=== PATIENT | male | born 1955 | race Caucasian/White ===

== ENCOUNTER → 2017-12-01 | Outpatient (CLI) | payer MEDICARE, BC ==
[~2017-12-01] MED LIST: ALLOPURINOL 10100 M1 PO; AUGMENTIN 500-1 EACH PO; BACTRIM DS TAB1 EAC1 PO; CIPRO500 MG PO; ERGOCALCIF50000 UNIT PO; GLUCOPHAGE500 MG PO; GLYBURIDE 5 MG T5 M1 PO; HYDROCODONE-AP1 EAC6 PO; IBUPROFEN 400400 M1 PO; INVANZ 1GM/NS 101 GM IV; LISINOPRIL20 MG PO
== END ==
LOC: M.WC 00:45
DX: E11.621 Type 2 diabetes mellitus with foot ulcer (principal); L97.521 Non-pressure chronic ulcer of other part of left foot limited to breakdown of skin; I89.0 Lymphedema, not elsewhere classified; I10 Essential (primary) hypertension; E66.01 Morbid (severe) obesity due to excess calories; Z68.43 Body mass index [BMI] 50.0-59.9, adult

== ENCOUNTER → 2017-12-08 | Outpatient (CLI) | payer MEDICARE, BC | LOC: M.WC 02:42 | DX: E11.621 Type 2 diabetes mellitus with foot ulcer (principal); L97.521 Non-pressure chronic ulcer of other part of left foot limited to breakdown of skin; I89.0 Lymphedema, not elsewhere classified; I10 Essential (primary) hypertension; L40.8 Other psoriasis; E66.01 Morbid (severe) obesity due to excess calories; Z68.43 Body mass index [BMI] 50.0-59.9, adult ==

== ENCOUNTER → 2017-12-08 | Outpatient (CLI) | payer MEDICARE, BC | LOC: M.MRI 12:01 | DX: L97.529 Non-pressure chronic ulcer of other part of left foot with unspecified severity (principal); M86.8X7 Other osteomyelitis, ankle and foot; E11.621 Type 2 diabetes mellitus with foot ulcer ==

== ENCOUNTER → 2017-12-15 | Outpatient (CLI) | payer MEDICARE, BC | LOC: M.WC 01:28 | DX: E11.621 Type 2 diabetes mellitus with foot ulcer (principal); L97.521 Non-pressure chronic ulcer of other part of left foot limited to breakdown of skin; I89.0 Lymphedema, not elsewhere classified; I10 Essential (primary) hypertension; L40.8 Other psoriasis; E66.01 Morbid (severe) obesity due to excess calories; Z68.43 Body mass index [BMI] 50.0-59.9, adult ==

== ENCOUNTER → 2017-12-21 | Outpatient (CLI) | payer MEDICARE, BC | LOC: M.WC 01:58 | DX: E11.621 Type 2 diabetes mellitus with foot ulcer (principal); L97.521 Non-pressure chronic ulcer of other part of left foot limited to breakdown of skin; I89.0 Lymphedema, not elsewhere classified; I10 Essential (primary) hypertension; L40.8 Other psoriasis; E66.01 Morbid (severe) obesity due to excess calories; Z68.43 Body mass index [BMI] 50.0-59.9, adult ==

== ENCOUNTER → 2019-12-05 | Day surgery (SDC) | payer MEDICARE, BC ==
[~2019-12-05] VITALS: Ht 177.8 cm; Wt 176.0 kg
[~2019-12-05] MED LIST changes: +DAILY MULTIPLE1 EACH PO; +DICLOXACILLIN500 MG PO
[2019-12-05 14:26] LABS: HEMATOCRIT 36.7 % (42.0-52.0); HEMOGLOBIN 11.8 gm/dL (14.0-18.0); MCHC 32.1 g/dL (28.0-37.0); MCV 80.9 fL (80.0-100.0); MPV 6.6 fl. (7.2-11.1); RBC 4.53 mil/uL (4.50-6.00); WBC 12.3 thou/uL (4.0-11.0)
--- NOTE | 2019-12-11 09:34 | PATH ---
[address] [address] PATHOLOGY RPT PROCEDURE Name: HOANG ARDON Room: [facility]#: [id number] Admission: 12/05/19 Date of : 59 Discharge: Report #: [id number] Path Case #: [id number] LCA Accession Number: [id number] . 01 Material submitted: . PART A: toe - SECOND AND THIRD TOE RIGHT FOOT/STITCH MARKED SECOND TOE. Modifiers: second, third, right PART B: toe - RIGHT FIFTH TOE. Modifiers: right, fifth . 01 Clinical history: . Osteomyelitis right third toe . 02 Diagnosis: A. Second and third right toes: - Second toe with nonspecific ulceration and osteomyelitis of underlying phalanx with dermal deposits typical of gout, disarticulation margin free of osteomyelitis. - Third toe with nonspecific ulceration and osteomyelitis of phalangeal bone, with disarticulation margin free of osteomyelitis. . B. Right fifth toe: - Benign toe including phalangeal bones, without osteomyelitis. . (FLAKO:elsy; 12/10/2019) MBR 12/10/2019 1330 Local . 02 Electronically signed: . Yaron Evans MD, Pathologist NPI- [id number] . 01 Gross description: . A. The specimen is received in formalin, labeled "Hoang Ardon, second and third right toe, stitch pierce second toe". Received are two amputated digits, which are attached to each other, measuring 5.3 x 4.8 x 2.7 cm in greatest dimensions. There is a suture present on one toe designating this as the second toe. The bone margins are smooth and concave, consistent with disarticulation. The bone and soft tissue margins of the second toe are inked black and the bone and soft tissue margins of the third toe are inked blue. Sectioning through the bone margin of the second toe causes severe fragmentation. The nail is absent on the third toe. The epidermal surface displays a poorly circumscribed, irregular in contour and hernandez-vela to yellow-green lesion measuring 3.5 x 3.5 cm, which covers approximately 80% of the epidermis. The specimen is submitted representatively as follows: . A1-A3 full-thickness longitudinal cross-section of second toe submitted from proximal to distal aspects, following decalcification A4-A6 full-thickness longitudinal cross-section [place] [address] PATHOLOGY RPT PROCEDURE Name: HOANG ARDON [facility] [id number] Admission: 12/05/19 Date of : 59 Discharge: Report #: [id number] Path Case #: [id number] from proximal to distal aspects, following decalcification. (CAA; 12/06/2019) . After initial microscopic examination, the specimen container is reexamined. No additional fragments of bone or soft tissue are identified. (CAA; 12/07/2019) . B. The specimen is received in formalin, labeled "Hoang Ardon, right fifth toe". Received is an amputated digit measuring 5.4 x 2.0 x 1.9 cm in greatest dimensions. The bone margin is smooth and concave in appearance, consistent with disarticulation. The bone and soft tissue margins are inked black. The nail is present displaying a light vela and slightly thickened appearance. The epidermal surface is pale vela and grossly unremarkable. A full-thickness longitudinal cross-section is submitted from proximal to distal aspects in cassettes B1 through B3, following decalcification. (CAA; 12/06/2019) QAC/QAC 12/10/2019 1328 Local . 02 Pathologist provided ICD-10: L97.519, M86.171 . 02 CPT . 666864, 880618, 836489, 319346 Specimen Comment: A courtesy copy of this report has been sent to [phone], [phone] Specimen Comment: [id number] Specimen Comment: Report sent to / DR FREIRE Specimen Comment: A duplicate report has been generated due to demographic updates. Performed at: 01 [facility] [address] [facility] [address], [place] [address] MD Michael Chan MD Phone: [phone] Performed at: 02 [facility] [address], [place], [place] [id number] MD Yaron Evans MD Phone: [phone]
--- NOTE | 2019-12-12 13:43 | OP ---
[address] [address] OPERATIVE REPORT Name: ROBERTO CARLOS ARDON Room: [facility]#: [id number] Admission: 12/05/19 Attend Phys: Gregg Shaver DPM Discharge: Date of : 59 Report #: [id number] THIS REPORT FOR: //name// cc: Josh Wallace MD, David L. MD ~ THIS REPORT FOR: //name// CC: Gregg Wallace DATE OF SERVICE: 12/05/2019 SURGEON: Gregg Shaver DPM. PREOPERATIVE DIAGNOSES: 1. Osteomyelitis, right third toe with nonhealing ulceration. 2. Hammertoe deformities, right second, third and fifth toes. PROCEDURE: Resection, right distal second and third metatarsal heads. ANESTHESIA: MAC. INJECTABLES: A 26 mL of a 1:1 mixture of 0.5% Marcaine plain and 1% lidocaine plain. ESTIMATED BLOOD LOSS: Roughly 2 mL. HEMOSTASIS: Right ankle pneumatic tourniquet at 300 mmHg. SPECIMENS: Right second, third and fifth toes and distal second and third metatarsals. SUTURES: 2-0 nylon. COMPLICATIONS: None. DESCRIPTION OF PROCEDURE: The patient left the OR, placed on the table supine with induction of MAC anesthesia. A well-padded right ankle tourniquet was placed. A local anesthetic block was given and the extremity was prepped and draped aseptically. The foot was exsanguinated with inflation of the tourniquet. A #10 blade was used to disarticulate the right second and third toes as well as the fifth toe from the metatarsophalangeal joints. Disarticulated through elliptical incisions circumferentially around the metatarsophalangeal joints. I was unable to obtain proper closure of the skin at the second and third toe amputation sites, so I transected a portion of the second and third metatarsal heads to facilitate tissue [place] [address] OPERATIVE REPORT Name: ROBERTO CARLOS ARDON [id number] Admission: 12/05/19 Attend Phys: Gregg Shaver DPM Discharge: Date of : 59 Report #: [id number] was utilized for hemostasis and the wounds were flushed with sterile saline. Skin flap was mobilized plantarly to the dorsal aspect of the second and third toe amputation site and sutured with 2-0 nylon. The skin was sutured close over the fifth toe site. The tourniquet was deflated with normal vascular return. The foot was cleansed and dried and dressed with Aquacel Ag, ABDs, Kerlix and Aquiles bandages. The patient left the OR with no complications noted. <ELECTRONICALLY SIGNED> By: Gregg Shaver DPM 12/12/19 1343 1821 1941Djaja Shaver DPM /daniel
--- NOTE | 2019-12-14 14:57 | EKG ---
[place] [address] ELECTROCARDIOGRAM REPORT Name: KRISTEN ARDONY Melanie Room: [facility]#: [id number] Admission: 12/05/19 Attend Phys: Crissy Gomez Discharge: Date of : 59 Date of Service: 12/05/19 1412 Report #: [id number] THIS REPORT FOR: //name// [facility] Test Date: 2019-12-05 Test Time: 14:12:56 Pat Name: ROBERTO CARLOS ARDON Department: Room: Gender: Driver Guard: : 1955 Requested By: Gregg Shaver Order Number: [id number] Reading MD: Josh Munguia Measurements Intervals [place] Rate: 98 P: -5 TX: 195 QRS: -36 QRSD: 104 T: 72 QT: 372 QTc: 476 Interpretive Statements Sinus tachycardia Ventricular premature complex Left axis deviation Anterior infarct, old Compared to ECG 06/16/2017 07:50:28 Ventricular premature complex(es) now present Left-axis deviation now present Myocardial infarct finding still present Electronically Signed On 12-06-2019 9:16:35 DRAFTING LAYOUT WORKER by Josh Munguia [email or web address] <ELECTRONICALLY SIGNED> By: Josh Munguia MD, FAC 12/06/19 0916 141 141 Josh Munguia MD, FAC /EPI
== END | disposition home or self-care (01) ==
LOC: M.SUR 08:12
PROVIDERS: Podiatrist Foot & Ankle Surgery
DX: M86.171 Other acute osteomyelitis, right ankle and foot (principal); M20.41 Other hammer toe(s) (acquired), right foot; L97.519 Non-pressure chronic ulcer of other part of right foot with unspecified severity; Z98.890 Other specified postprocedural states; Z79.899 Other long term (current) drug therapy

== ENCOUNTER 2021-01-22 14:50 | Inpatient (IN) | payer MEDICARE, BC ==
[~2021-01-22] VITALS: Ht 177.8 cm; Wt 153.1 kg
[2021-01-22 14:54] VITALS: BP 98/46
--- NOTE | 2021-01-22 15:13 | NUR ---
PT COVERED IN FECES UPON ARRIVAL TO ER. PT REPORTS HE HAS NOT BEEN ABLE TO AMBULATE SINCE YESTERDAY DUE TO WEAKNESS AND HAS BEEN SITTING IN FECES. PT HAS OPEN WOUND ON RIGHT BUTTOCK WELL PENIS. PT WAS CLEANED UP AND IS NOW CONNECTED TO CARDIAC, BP AND O2 MONITORS.
[2021-01-22 15:43] LABS: HEMATOCRIT 33.7 % (42.0-52.0); HEMOGLOBIN 10.5 gm/dL (14.0-18.0); MCHC 31.3 g/dL (28.0-37.0); MCV 79.8 fL (80.0-100.0); MPV 6.7 fl. (7.2-11.1); NUCLEATED RBCS 0 /100WBC; PLATELET COUNT* 453 thou/uL (150-400); RBC 4.22 mil/uL (4.50-6.00); RDW-CV 20.4 % (10.5-14.5); WBC 28.8 thou/uL (4.0-11.0)
[2021-01-22 15:44] LABS: URINE BLOOD 1+ (Negative); URINE CLARITY CLEAR; URINE COLOR YELLOW; URINE GLUCOSE-RANDOM NEGATIVE (Negative); URINE KETONES NEGATIVE (Negative); URINE PROTEIN NEGATIVE (Negative); URINE SPECIFIC GRAVITY 1.015 (1.005-1.030); URINE UROBILINOGEN 0.2 E.U./dl (0.2-1.0)
[2021-01-22 15:48] LABS: ICTOTEST (BILI CONFIRMATORY) Positive (Negative); URINE BILIRUBIN 1+ (Negative); URINE LEUKOCYTES-REFLEX 2+ (Negative); URINE NITRITE-REFLEX POSITIVE (Negative)
[2021-01-22 15:55] LABS: SQUAMOUS 0-3 Few /LPF (0-3)
[2021-01-22 15:56] LABS: CASTS None Seen /LPF (None Seen); CRYSTALS None Seen /LPF (None Seen); MUCUS 0-3 Light strn/LPF (None Seen); URINE RBC 0-2 Rare /HPF (0-2); URINE WBC-REFLEX 6-15 Few /HPF (0-5)
[2021-01-22 16:00] LABS: CALCIUM 8.3 mg/dL (8.5-10.1); CREATININE 1.2 mg/dL (0.6-1.3); POTASSIUM 3.7 mmol/L (3.5-5.1)
[2021-01-22 16:01] LABS: APTT 25.4 Seconds (25.0-31.3); INR 1.1; PROTIME 11.2 Seconds (9.20-11.50)
[2021-01-22 16:13] LABS: ALBUMIN 2.6 g/dL (3.4-5.0); TOTAL BILIRUBIN 1.8 mg/dL (<0.1-1.0); TOTAL PROTEIN 6.9 g/dL (6.4-8.2)
[2021-01-22 16:19] LABS: ABSOLUTE LYMPHOCYTES 0.6 thou/uL (0.8-5.3); ABSOLUTE MONOCYTES 3.2 thou/uL (0.0-1.2); ABSOLUTE NEUTROPHILS 25.1 thou/uL (1.6-8.1); ANISOCYTOSIS 2+; MICROCYTES Occasional; PLATELET ESTIMATE ADEQUATE
[2021-01-22 16:20] LABS: HYPOCHROMASIA Occasional
--- NOTE | 2021-01-22 16:37 | EKG ---
[place] [address] ELECTROCARDIOGRAM REPORT Name: ROBERTO CARLOS ARDON Room: [place] [address] ADM IN ..#: [id number] Admission: 01/22/21 Attend Phys: Destin Mason Discharge: Date of : 59 Date of Service: 01/22/21 1454 Report #: [id number] THIS REPORT FOR: //name// [facility] ED Test Date: 2021-01-22 Test Time: 14:54:37 Pat Name: ROBERTO CARLOS ARDON Department: Room: [facility] Gender: M Supervisor Final: MARY : 1955 Requested By: Zhang Martinez Order Number: [id number] MD: Jose Middleton Measurements Intervals [place] Rate: 130 P: [place]: QRS: -55 QRSD: 142 T: 106 QT: 331 QTc: 487 Interpretive Statements Atrial fibrillation Left bundle branch block Baseline wander in lead(s) V3 Compared to ECG 12/05/2019 14:12:56 Left bundle-branch block now present Sinus tachycardia no longer present Ventricular premature complex(es) no longer present Left-axis deviation no longer present Myocardial infarct finding no longer present Electronically Signed On 01-22-2021 16:37:07 CDT by Jose Middleton [email or web address] <ELECTRONICALLY SIGNED> By: Jose Middleton MD, [facility] 01/22/21 1637 1454 1454 Jose Middleton MD, [facility] /EPI
[2021-01-22 17:05] VITALS: BP 105/46
[2021-01-22] MEDS ORDERED: AMIODARONE HCL400 MG PO (17:09)
[2021-01-22] MEDS ORDERED: ASA81BEC PO (17:10)
[2021-01-22] MEDS ORDERED: FERRETTS325 MG PO (17:10)
[2021-01-22] MEDS ORDERED: AMMONIUM LACTA385 GM TOP (17:10)
[2021-01-22] MEDS ORDERED: LASIX 40 MG TAB40 MG PO (17:11)
[2021-01-22] MEDS ORDERED: HUMALOG100 UNIT/1 SUBQ (17:11)
[2021-01-22] MEDS ORDERED: GLIPIZIDE 10 MG10 MG PO (17:11)
[2021-01-22] MEDS ORDERED: LANTUS SUBQ (17:11)
[2021-01-22] MEDS ORDERED: TOPROL XL25 MG PO (17:12)
[2021-01-22] MEDS ORDERED: MAXIMUM DAILY1 EACH PO (17:12)
[2021-01-22] MEDS ORDERED: MIRTAZAPINE7.5 MG PO (17:12)
[2021-01-22] MEDS ORDERED: NYSTATIN-TRIAMC15 GM TOP (17:13)
[2021-01-22] MEDS ORDERED: PREPARATION H C26 GM RECTAL (17:14)
[2021-01-22] MEDS ORDERED: PROTONIX 20 MG20 MG PO (17:14)
[2021-01-22] MEDS ORDERED: SERTRALINE HCL100 MG PO (17:15)
[2021-01-22] MEDS ORDERED: FLORASTOR250 MG PO (17:15)
[2021-01-22] MEDS ORDERED: SPIRONOLACTONE25 MG PO (17:16)
[2021-01-22] MEDS ORDERED: CARAFATE 1 GM TA1 GM PO (17:16)
[2021-01-22 18:00] VITALS: BP 128/83
[2021-01-22 20:00] VITALS: BP 96/52
[2021-01-23] VITALS: BP 103/56
[2021-01-23 04:00] VITALS: BP 100/61
--- NOTE | 2021-01-23 07:20 | NUR ---
CHANGE OF SHIFT BEDSIDE REPORT GIVEN PATIENT SEEN AT BEDSIDE, IN BED RESTING ASSUMED PATIENT CARE
[2021-01-23 07:43] LABS: CALCIUM 7.6 mg/dL (8.5-10.1); CREATININE 1.1 mg/dL (0.6-1.3); POTASSIUM 3.4 mmol/L (3.5-5.1)
[2021-01-23 07:46] LABS: MAGNESIUM 1.8 mg/dL (1.8-2.4); PHOSPHORUS* 4.1 mg/dL (2.5-4.9)
--- NOTE | 2021-01-23 07:49 | NUR ---
ASSUMED CARE OF PT AFTER REPORT AT 1930. PT A&OX4. VSS. PHYSICAL ASSESSMENT COMPLETED AND CHARTED. PT ON RA. PT TRACING AFIB/BBB ON TELE.PT DENIES ANY PAIN. STOOL SPECIMEN SENT TO LAB. PT WITH SACRAL & LEFT BUTTOCK SORE & BLE LYMPHEDEMA-WOUND CARE CONSULT. FALL PRECAUTIONS IN PLACE. CALL LIGHT WITHIN REACH.
[2021-01-23 07:58] LABS: % SATURATION 6 % (20-39); IRON 9 ug/dL (50-175)
[2021-01-23 08:00] VITALS: BP 106/60
[2021-01-23 10:03] LABS: ABSOLUTE BASOPHILS 0.1 thou/uL (0.0-0.2); ABSOLUTE LYMPHOCYTES 1.3 thou/uL (0.8-5.3); ABSOLUTE MONOCYTES 2.3 thou/uL (0.0-1.2); ABSOLUTE NEUTROPHILS 20.9 thou/uL (1.6-8.1); BASOPHILS 0.3 %; HEMATOCRIT 30.9 % (42.0-52.0); HEMOGLOBIN 9.8 gm/dL (14.0-18.0); LYMPHOCYTES 5.3 %; MCH 25.2 pg (26.0-34.0); MCHC 31.6 g/dL (28.0-37.0); MONOCYTES 9.5 %; MPV 6.9 fl. (7.2-11.1); NUCLEATED RBCS 0 /100WBC; PLATELET COUNT* 376 thou/uL (150-400); POLYS 84.9 %; RBC 3.86 mil/uL (4.50-6.00); WBC 24.6 thou/uL (4.0-11.0)
[2021-01-23 10:19] LABS: ALBUMIN 2.2 g/dL (3.4-5.0); CALCIUM 7.6 mg/dL (8.5-10.1); POTASSIUM 3.6 mmol/L (3.5-5.1); TOTAL BILIRUBIN 2.4 mg/dL (<0.1-1.0)
[2021-01-23 11:29] VITALS: BP 106/60
--- NOTE | 2021-01-23 12:15 | NUR ---
WOUND CARE NURSE: PATIENT SEEN FOR BILATERAL LOWER LEG EDEMA AND OPEN AREA TO BILATERAL BUTTOCK. SIZE E TUBIGRIP NOTED TO BILATEAL LOWER LEGS REMOVED. GIRTH MEASUREMENTS AT FOOT RIGHT 22CM LEFT 24CM, ANKLE RIGHT 21CM LEFT 22CM AND CALFS RIGHT 40CM AND LEFT 38CM. LARGE AREA OF DISCOLORATION AND SCALING NOTED TO BILATERAL LEGS. AREA CLEANED, MOISTURISING LOITION APPLIED AND TUBIGRIP REPLACED BILATERALY. PATIENT WAS ABLE TO TURN SELF FROM SIDE TO SIDE IN BED TO ASSIST WITH BUTTOCK EVALUATION AND DRESSING. LEFT BUTTOCK PARTIAL THICHNESS OPEN AREA MEASURES 4.5CM X 1CM X 0.1CM RIGHT PARTIAL THICKNESS OPEN AREA MEASURES 4CM X 0.5CM X 0.1CM. MINIMAL SEROSANGUINEOUS DRAINAGE NOTED ON BED FROM BOTH. AREAS CLANSED WITH SOAP AND WATER AND PATTED DRY. EXUDERM DRESSING APPLIED TO BOTH AREAS ADN SECRED WITH TRANSPARENT DRESSING. EDUCATION ON REPOSITIONING AND ELEVATION OF LEGS REINFORCEMENT NEEDED. PATIENT DENIES PAIN RELATED TO WOUNDS AT THIS TIME ALSO DENIES OTHER QUESTIONS OR NEEDS.
--- NOTE | 2021-01-23 12:43 | NUR ---
Pt is A&O. Resides at home with . Pt was just discharged from [facility] last Tuesday. CM spoke with vicki Parker, at [facility], she informed that Pt has used all of his skilled days. Per Elena, they could accept Pt back LTC and bill his Medicare Part B for additional therapies, but family would be responsible for his room and board. A semi private would b $275/day, private room would be $350/day or they could accept him Medicaid pending, CM to discuss with Pt/. CM asked Med Assist to screen Pt to see if he would qualify for [place]. Pt uses a walker for mobility. Pt currently has HH, CM trying to figure out which HH Pt has. Cdiff pending. Therapies ordered.
--- NOTE | 2021-01-23 13:48 | 2DMMODE ---
[place] [address] 2 D/M-MODE ECHOCARDIOGRAM Name: ROBERTO CARLOS ARDON Room: [address] ADM IN Marc.#: [id number] Admission: 01/22/21 Attend Phys: Destin Mason Discharge: Date of : 59 Date of Service: 01/23/21 1347 Report #: [id number] THIS REPORT FOR: cc: Josh Wallace MD, David L. MD Blick, David R. MD [facility] ~ APPROVED REPORT Study performed: 01/23/2021 10:51:34 EXAM: Comprehensive 2D, Doppler, and color-flow Echocardiogram Patient Location: In-Patient Room #: [facility] Status: routine BSA: 2.52 HR: 97 bpm BP: 106/60 mmHg Rhythm: NSR Other Information Study Quality: Good Indications Congestive Heart Failure 2D Dimensions IVSd: 12.08 (7-11mm) LVOT Diam: 21.39 (18-24mm) LVDd: 57.11 mm PWd: 10.18 (7-11mm) Ascending Ao: 35.84 (22-36mm) LVDs: 46.92 (25-40mm) Aortic Root: 36.68 mm Volumes Left Atrial Volume (Systole) LA ESV Index: 36.20 mL/m2 Aortic Valve AoV Peak Tin.: 3.04 m/s AO Peak Gr.: 37.05 mmHg LVOT Max P.42 mmHg AO Mean Gr.: 24.34 mmHg LVOT Mean P.91 mmHg LVOT Max V: 0.93 m/s AO V2 VTI: 54.07 cm LVOT Mean V: 0.64 m/s ZECHARIAH (VTI): 1.19 cm2 LVOT V1 VTI: 17.94 [place] [address] 2 D/M-MODE ECHOCARDIOGRAM Name: ROBERTO CARLOS ARDON Room: [address] IN [facility]#: [id number] Admission: 01/22/21 Attend Phys: Destin Mason Discharge: Date of : 59 Date of Service: 01/23/21 1347 Report #: [id number] TDI Medial E' Tin.: 0.10 m/s Pulmonary Valve PV Peak Tin.: 0.85 m/s PV Peak Gr.: 2.87 mmHg Tricuspid Valve RAP Estimate: 5.00 mmHg TR Peak Gr.: 28.83 mmHg RVSP: 33.00 mmHg PA Pressure: 33.00 mmHg Left Ventricle The left ventricle is normal size. paradoxical septum motion consistent with intraventricular conduction defect There is normal left ventricular wall thickness. Left ventricular systolic function is borderline. LVEF is 45-50%. This study is not technically sufficient to allow evaluation of the LV diastolic function due to atrial fibrillation. Right Ventricle The right ventricle is normal size. The right ventricular systolic function is normal. Atria Left atrium is mildly dilated. The right atrium size is normal. Aortic Valve Aortic valve is calcified. No aortic regurgitation is present. Moderate aortic stenosis. Mitral Valve There is mitral annular calcification. The mitral valve is normal in structure. There is trace mitral valve regurgitation noted. No evidence of mitral valve stenosis. Tricuspid Valve The tricuspid valve is normal in structure. Mild tricuspid regurgitation. estimated pa pressure 40 mm Hg Pulmonic Valve The pulmonary valve is normal in structure. Trace pulmonic regurgitation. Great Vessels The aortic root is normal in size. IVC [place] [address] 2 D/M-MODE ECHOCARDIOGRAM Name: ARDONROBERTO CARLOS Melanie Room: [address] IN .R.#: [id number] Admission: 01/22/21 Attend Phys: Destin Mason Discharge: Date of : 59 Date of Service: 01/23/21 1347 Report #: [id number] collapses >50% with inspiration. Pericardium There is no pericardial effusion. <Conclusion> LVEF is 45-50%. Left atrium is mildly dilated. Moderate aortic stenosis. Mild tricuspid regurgitation. estimated pa pressure 40 mm Hg <ELECTRONICALLY SIGNED> By: Josh Munguia MD, FACC 01/23/21 1347 46 46 Josh Munguia MD, [facility] /INF
[2021-01-24 00:29] VITALS: BP 83/46
[2021-01-24 02:06] LABS: GLYCOHEMOGLOBIN (HGB A1C) 5.9 % (4.8-5.6)
[2021-01-24 05:03] VITALS: BP 78/42
--- NOTE | 2021-01-24 06:19 | NUR ---
ASSUMED CARE OF PATIENT AT 1930. PATIENT HAS HAD SOFT BP'S THROUGH NIGHT WITH SPB IN THE 70-80s. NOTIFIED GRADES 1 THRU 6 HOME TEACHER PHYSICIAN AND RECEIVED ORDERS FOR NS BOLUS AND THEN NS @ 100 ML/HR. PATIENT DENIES DIZZINESS.
[2021-01-24 10:06] LABS: HEMATOCRIT 29.6 % (42.0-52.0); HEMOGLOBIN 9.1 gm/dL (14.0-18.0); MCH 25.2 pg (26.0-34.0); MCHC 30.7 g/dL (28.0-37.0); MCV 81.9 fL (80.0-100.0); MPV 7.3 fl. (7.2-11.1); RBC 3.61 mil/uL (4.50-6.00); RDW-CV 20.2 % (10.5-14.5); WBC 23.5 thou/uL (4.0-11.0)
[2021-01-24 10:16] LABS: CALCIUM 7.8 mg/dL (8.5-10.1); POTASSIUM 3.5 mmol/L (3.5-5.1); TOTAL BILIRUBIN 1.8 mg/dL (<0.1-1.0); TOTAL PROTEIN 4.7 g/dL (6.4-8.2)
[2021-01-24 10:17] LABS: CREATININE 2.2 mg/dL (0.6-1.3)
[2021-01-24 12:00] VITALS: BP 92/39
[2021-01-24 16:00] VITALS: BP 95/49
--- NOTE | 2021-01-24 17:27 | NUR ---
ASSUMED PT CARE AT 0730. PT IS A&O X4, COOPERATIVE AND FRIENDLY. ASSESSMENT COMPLETED. MEDICATIONS ADMINISTERED ORDERED. SCANNED BUT HELD 1600 DOSE OF VANCO IV LAB WAS PRESENT DRAWING TROUGH. RESULTS 32 SO VANCO TO BE HELD. HELD PO DOSE WELL. SAFETY MEASURES IN PLACE. BP CONTINUES TO RUN SOFT THIS AM, BP MEDS HELD AND PHYSICIAN NOTIFIED. NEW ORDERS TO DC MEDICATIONS. WOUND CARE COMPLETED ORDERED DUE TO SOILAGE.
[2021-01-24 20:14] VITALS: BP 74/46
[2021-01-25 04:19] VITALS: BP 80/37
--- NOTE | 2021-01-25 05:33 | NUR ---
ASSUMED CARE OF PATIENT AT 1930. DAY SHIFT REPORTED URINE OUTPUT LESS THAN 200. DURING NOC SHIFT PATIENT HAD 200 OUT. PATIENT HAS HOLT IN PLACE BUT DID BLADDER SCAN PATIENT AND NO RESIDUAL URINE FOUND. PATIENT DENIES ANY SOA. LUNG SOUNDS ARE DIMINISHED. PATIENT O2 LAST O2 SAT 91% ON RA. PATIENT DOES NOT APPEAR TO BE IN DISTRESS.
[2021-01-25 08:50] VITALS: BP 79/38
[2021-01-25 09:56] LABS: HEMATOCRIT 31.3 % (42.0-52.0); HEMOGLOBIN 9.6 gm/dL (14.0-18.0); MCH 25.5 pg (26.0-34.0); MCHC 30.6 g/dL (28.0-37.0); MCV 83.3 fL (80.0-100.0); MPV 7.2 fl. (7.2-11.1); RBC 3.76 mil/uL (4.50-6.00); RDW-CV 20.8 % (10.5-14.5); WBC 22.2 thou/uL (4.0-11.0)
[2021-01-25 10:05] LABS: CALCIUM 7.9 mg/dL (8.5-10.1); POTASSIUM 3.7 mmol/L (3.5-5.1); TOTAL BILIRUBIN 1.4 mg/dL (<0.1-1.0)
[2021-01-25 10:06] LABS: CREATININE 3.2 mg/dL (0.6-1.3)
[2021-01-25 12:50] VITALS: BP 82/45
[2021-01-25 16:39] VITALS: BP 69/30
[2021-01-25 20:00] VITALS: BP 82/41
--- NOTE | 2021-01-25 20:06 | NUR ---
ASSUMED PT CARE AT 0730. PT IS PLEASANT, A&OX4. PT ENCOURAGED TO EAT AND DRINK MORE FLUIDS. BP CONTINUE TO BE SOFT, BUT PT IS ASYMPTOMATIC AND DENIES ANY DIZZINESS, NAUSEA, OR CONFUSION. PT'S LOC WITH NO CHANGE. PT SKIN IS WARM AND DRY. SAFETY MEASURES IN PLACE AND PT ASSISTED WITH REPOSITIONING AND TURNING Q2H. WOUND CARE DONE ORDERED. BP CONTINUES TO BE SOFT 73/35 SPOKE WITH PHYSICIAN AND NEW ORDERS RECIEVED AND IMPLEMENTED FOR NS 500ML TO INFUSE AT 125/HR X1. PT REMAINS ON ISOLATION FOR CDIFF AND CONTINUES TO HAVE LOOSE STOOLS. MOISTURE BARRIER APPLIED AFTER EACH EPISODE. ROUNDING Q1HR. PT REPORTS THAT HE IS FEELING BETTER SINCE HE ATE SOME SOUP.
[2021-01-25 20:15] VITALS: BP 82/41
[2021-01-26] VITALS (65 sets, daily range): BP systolic 71–115; BP diastolic 28–67
--- NOTE | 2021-01-26 04:35 | NUR ---
ASSUMED PT CARE AT APPROX 1930. PT IS AWAKE AND ORIENTED X4. PT IS NOT IN DISTRESS, NO DESATURATIONS NOTED ON ROOM AIR. PT IS TRACING AFIB ON THE PUBLIC RELATIONS SALES MARKETING-RATE IS CONTROLLED. BP STILL SOFT, PT DENIES DIZZINESS, SOB ALTHOUGH PT APPEARS TO BE SHORT OF AIR WITH POSITION CHANGES. IV HYDRATION COMPLETED ORDERED.HIGH FALL PRECAUTIONS IN PLACE. PT REMAINED INCONTINENT OF BOWEL, PT IS KEPT CLEAN AND SKIN PROTECTANT APPLIED EACH TIME. PT IS CLOSELY MONITORED.
--- NOTE | 2021-01-26 07:15 | NUR ---
CHANGE OF SHIFT, BEDSIDE REPORT GIVEN PATIENT SEEN AT BEDSIDE, IN BED ASLEEP ASSUMED PATIENT CARE
--- NOTE | 2021-01-26 08:30 | NUR ---
contacted dr garza via [facility] regarding hypotention
--- NOTE | 2021-01-26 08:45 | NUR ---
contacted dr after sepsis assmnt done flags for sepsis b/p 77/36 hr 102 plts 440 cr 3.2 concerns
--- NOTE | 2021-01-26 08:55 | NUR ---
notified dr of lower bp 66/36
--- NOTE | 2021-01-26 09:00 | NUR ---
contacted print line supervisor after no response from print line supervisor to rm at assist and then call from order to start ns at 150cc/hr and labs to be ordered
--- NOTE | 2021-01-26 11:30 | NUR ---
dr contacted to notify of concerns for patient status no improvement in bp 74/39 and patient seems lethargic and pale but flushed in the cheeks orders to ransfer to icu production supervisor trainee notified and patient to transfer icu 7
--- NOTE | 2021-01-26 11:45 | NUR ---
patient transferred to icu 7 via bed with o2 2l nc telephone report given prior to transfer belongings sent and adrienne notified of move
[2021-01-26 13:33] LABS: HEMATOCRIT 32.2 % (42.0-52.0); HEMOGLOBIN 9.8 gm/dL (14.0-18.0); MCH 25.1 pg (26.0-34.0); MCHC 30.5 g/dL (28.0-37.0); MCV 82.4 fL (80.0-100.0); MPV 7.3 fl. (7.2-11.1); RBC 3.9 mil/uL (4.50-6.00); RDW-CV 20.5 % (10.5-14.5); WBC 21.4 thou/uL (4.0-11.0)
--- NOTE | 2021-01-26 13:48 | NUR ---
Pt transferring to ICU, unable to keep BP up.
[2021-01-26 13:52] LABS: ALBUMIN 1.9 g/dL (3.4-5.0); CALCIUM 8.3 mg/dL (8.5-10.1); POTASSIUM 3.7 mmol/L (3.5-5.1); TOTAL BILIRUBIN 1.1 mg/dL (<0.1-1.0); TOTAL PROTEIN 5.7 g/dL (6.4-8.2)
[2021-01-26 13:53] LABS: CREATININE 4.2 mg/dL (0.6-1.3)
[2021-01-26 14:07] LABS: URINE SODIUM 42 (58-337); URINE SODIUM-mEq/L 26 mmol/L (Not Estab.)
--- NOTE | 2021-01-26 19:00 | NUR ---
DOPAMINE GTT INITIATED PER ORDERS, TITRATED TO KEEP MAP>60. DTR IN THE ROOM FOR FEW HOURS, UPDATED. VOMITTED x2 THIS SHIFT, ZOFRAN GIVEN ONCE BEFORE PO MEDS, TOLERATED THE MEDS. URINE OUTPUT <50 MLS THROUGHOUT THE SHIFT, BLADDER SCAN SHOWED 20 MLS, DR FROST NOTIFIED. 1L FLUID BOLUS GIVEN. AFIB RVR, RECEIVED ORDER FOR DIGOXIN.
[2021-01-27] VITALS (107 sets, daily range): BP systolic 78–135; BP diastolic 30–83
--- NOTE | 2021-01-27 01:20 | NUR ---
PATIENT HR CONTROLLED BETTER AFTER DOSE OF DIGOXIN AND REDUCING DOPAMINE INFUSION. BP MAINTAINED WHILE INCREASING LEVOPHED AND WEANING OFF DOPAMINE. PATIENT O2 SAT MARKEDLY DECREASED TO UPPER 80'S ON 6L NC. VENTI MASK APPLIED AT 50%. MAINTAINING O2 SAT MID-LOW 90'S.
[2021-01-27 03:34] LABS: HEMATOCRIT 35.9 % (42.0-52.0); HEMOGLOBIN 10.9 gm/dL (14.0-18.0); MCH 24.7 pg (26.0-34.0); MCHC 30.3 g/dL (28.0-37.0); MCV 81.4 fL (80.0-100.0); MPV 6.6 fl. (7.2-11.1); NUCLEATED RBCS 0 /100WBC; RBC 4.41 mil/uL (4.50-6.00); RDW-CV 20.7 % (10.5-14.5); WBC 35.8 thou/uL (4.0-11.0)
[2021-01-27 03:38] LABS: PLATELET COUNT* 568 thou/uL (150-400)
[2021-01-27 03:50] LABS: CALCIUM 8.2 mg/dL (8.5-10.1); POTASSIUM 4.3 mmol/L (3.5-5.1); TOTAL BILIRUBIN 1.1 mg/dL (<0.1-1.0); TOTAL PROTEIN 6.3 g/dL (6.4-8.2)
[2021-01-27 05:42] LABS: ABSOLUTE EOSINOPHILS 0.4 thou/uL (0.0-0.7); ABSOLUTE LYMPHOCYTES 3.6 thou/uL (0.8-5.3); ABSOLUTE MONOCYTES 2.9 thou/uL (0.0-1.2); HYPOCHROMASIA 1+; MYELOCYTES 1 %; PLATELET ESTIMATE INCREASED
[2021-01-27 05:43] LABS: ANISOCYTOSIS 1+; POIKILOCYTOSIS 1+
[2021-01-27 07:17] LABS: URINE BILIRUBIN NEGATIVE (Negative); URINE BLOOD TRACE (Negative); URINE CLARITY CLEAR; URINE COLOR YELLOW; URINE GLUCOSE-RANDOM NEGATIVE (Negative); URINE KETONES NEGATIVE (Negative); URINE PROTEIN 2+ (Negative); URINE SPECIFIC GRAVITY 1.025 (1.005-1.030); URINE UROBILINOGEN 0.2 E.U./dl (0.2-1.0)
--- NOTE | 2021-01-27 07:19 | NUR ---
ASSESSMENTS CHARTED. ATTEMPTED TO TITRATE OFF DOPAMINE TO SWITCH TO LEVOPHED. PATIENT NOT TOLERATING DECREASING DOPAMINE. SEE TITRATION RECORD FOR DETAILS. PATIENT ALERT AND ORIENTEDX4, DENIES PAIN. HR CONTROLLED WITH MEDICATION. REMAINS AFIB RATE CONTROLLED.
[2021-01-27 07:22] LABS: URINE LEUKOCYTES-REFLEX 3+ (Negative); URINE NITRITE-REFLEX POSITIVE (Negative)
[2021-01-27 07:35] LABS: BACTERIA-REFLEX >30 Many /HPF (None Seen); CASTS None Seen /LPF (None Seen); CRYSTALS None Seen /LPF (None Seen); MUCUS None Seen strn/LPF (None Seen); SQUAMOUS 0-3 Few /LPF (0-3); URINE RBC 3-10 Few /HPF (0-2); URINE WBC-REFLEX >25 Many /HPF (0-5); YEAST-REFLEX Present (None Seen)
--- NOTE | 2021-01-27 11:07 | NUR ---
WOUND NURSE: PATIENT SEEN TO ADDRESS STAGE 2 PRESSURE INJURY EACH MEASURING 2.0 X 1.0 X 0.1 CM. PARTIAL THICKNESS TISSUE LOSS EXPOSING RED, NONGRANULATING TISSUE. NO ACTIVE DRAIANGE NOTED. PATIENT CLEANSED WITH PERINEAL WIPES, THEN APPLIED ZGUARD MOISTURE BARRIER CREAM. WOUND EDGES ARE ROUGH. NO ACTIVE DRAINAGE. APPLIED SINGEL LAYER SIZE F TUBIGRIPS TO BLE TOES TO KNEE. PULSES ARE PALPABLE. FEET COOL TO TOUCH. PATIENT ON REPOSITION SCHEDULE AND SPECIALTY BED CURRENTLY SET FOR LATEAL ROTATION. PATIENT INSTRUCTED ON MEASURES TO PROMOTE HEALING AND PREVENT COMPLICATION. PATIENT REPORTING THAT HE WAS ADMITTED FROM HOME WITH THESE WOUNDS, BUT HE DOES NOT KNOW HOW OLD THE WOUNDS AREE.
--- NOTE | 2021-01-27 11:35 | NUR ---
PT ROUNDS: PT POSITIVE FOR CDIFF. WHITE COUNT IS POOR. PT CONT ON 4L OF O2.
--- NOTE | 2021-01-27 13:25 | NUR ---
PT EXTUBATED PER ORDERS 1255, PRECEDEX INFUSING PER ORDERS, PT TOLERATING WELL AT THIS TIME, WILL CONTINUE TO MONITOR.
--- NOTE | 2021-01-27 14:24 | NUR ---
PT HAS VERY POOR APPETITE, AGREED TO TRY CHICKEN NOODLE SOUP AT LUNCH, HOWEVER; ONCE SOUP ARRIVED PT STATED HE "JUST CAN'T EAT ANYTHING RIGHT NOW." NIVIA GIVEN THIS AM WITH MEDS, DENIES NAUSEA AT THIS TIME. STATES HE JUST "CAN'T EAT." WILL CONTINUE TO ENCOURAGE FOOD AND FLUIDS.
--- NOTE | 2021-01-27 15:29 | NUR ---
Took over care of this pt mid shift. Unable to wear scd's d/t wounds on legs BL. Levo and Dopamine gtt still needed. Pt denies pain at this time. Will continue to monitor closely.
[2021-01-28] VITALS (62 sets, daily range): BP systolic 72–125; BP diastolic 33–67
--- NOTE | 2021-01-28 05:56 | NUR ---
UNABLE TO DRAW LABS FROM PICC LINE THIS AM. INDUSTRIAL SECURITY ANALYST ATTEMPTED TO DRAW WITHOUT SUCCESS.
[2021-01-28 08:14] LABS: HEMOGLOBIN 11.2 gm/dL (14.0-18.0)
[2021-01-28 08:17] LABS: HEMATOCRIT 36.2 % (42.0-52.0); MCH 24.9 pg (26.0-34.0); MCV 80.2 fL (80.0-100.0); MPV 6.8 fl. (7.2-11.1); NUCLEATED RBCS 0 /100WBC; PLATELET COUNT* 555 thou/uL (150-400); RBC 4.51 mil/uL (4.50-6.00); RDW-CV 20.4 % (10.5-14.5)
[2021-01-28 08:19] LABS: WBC 49.8 thou/uL (4.0-11.0)
[2021-01-28 08:24] LABS: ALBUMIN 2.3 g/dL (3.4-5.0); CALCIUM 8.6 mg/dL (8.5-10.1); CREATININE 5.9 mg/dL (0.6-1.3); PHOSPHORUS* 6.6 mg/dL (2.5-4.9); POTASSIUM 5.3 mmol/L (3.5-5.1)
[2021-01-28 08:51] LABS: ABSOLUTE MONOCYTES 2.5 thou/uL (0.0-1.2); ABSOLUTE NEUTROPHILS 40.3 thou/uL (1.6-8.1); ANISOCYTOSIS 1+; ATYPICAL LYMPHS 2 %; METAMYELOCYTES 14 %; PLATELET ESTIMATE ADEQUATE
--- NOTE | 2021-01-28 12:13 | CON ---
[address] [address] CONSULTATION Name: ROBERTO CARLOS ARDON Room: [address] ADM IN M.R.#: [id number] Admission: 01/22/21 Attend Phys: Crissy Harrison Discharge: Date of : 59 Report #: [id number] THIS REPORT FOR: cc: Josh Wallace MD, David L. MD Khan, Abid R. MD ~ NEPHROLOGY CONSULTATION CONSULTING PHYSICIAN: Dr. Mason. REASON FOR CONSULTATION: Acute kidney injury. HISTORY OF PRESENT ILLNESS: A 65-year-old gentleman with a complex medical history initially admitted on 01/22 from rehab facility with weakness. He has a history of C. diff, sacral wound and yesterday developed sepsis and severe hypotension, was transferred down to the ICU, started on dopamine and had a rising creatinine with decreased urine output. His creatinine on 01/23 was 1. Subsequently, it has increased up to 5 today. He has a Wiley catheter in place. He has a complicated urinary tract infection and currently dopamine is being weaned off and he is being transitioned to Levophed. He is awake and alert. He is not requiring any significant oxygen and he presently does not have any complaints. REVIEW OF SYSTEMS: Constitutional, psych, heme, eyes, ENT, respiratory, cardiac, GI, , endocrine, all negative except as documented above. PAST MEDICAL HISTORY: AFib, C. diff, GERD, gout, type 2 diabetes. CURRENT MEDICATIONS: Reviewed. FAMILY HISTORY: Not pertinent in this 65-year-old gentleman. SOCIAL HISTORY: He is currently at a rehab facility. His durable power of production associate is his . PHYSICAL EXAMINATION: VITAL SIGNS: Blood pressure 93/53, pulse 67, respirations 27, temperature 36.4. GENERAL: No acute distress. EYES: Open. EARS: Externally normal. NECK: Supple. CARDIOVASCULAR: Regular rate. LUNGS: Diminished. ABDOMEN: Soft. MUSCULOSKELETAL: [place] [address] CONSULTATION Name: ARDONROBERTO CARLOS Melanie Room: [address] IN [facility].#: [id number] Admission: 01/22/21 Attend Phys: Crissy Harrison Discharge: Date of : 59 Report #: [id number] LYMPHATICS: Bilateral lower extremity wraps. PSYCHIATRIC: Awake, alert. LABORATORY DATA: White cell count 36, hemoglobin 10.9, platelets 568. Sodium 130, potassium 4.3, chloride 98, bicarbonate 23, BUN 44, creatinine 5, glucose 152, calcium 8.2, albumin 2. ASSESSMENT: 1. Acute kidney injury and subsequent ATN with severe hypotension and urosepsis with 01/23 creatinine of 1 up to 5 on 01/27. He was on Aldactone, lisinopril and Lasix, all have been discontinued. He had a vancomycin level as high as 32. 2. Septic shock, on Levophed as of 01/27. 3. Complicated urinary tract infection. 4. Hyponatremia with sodium as low as 126 on 01/22. 5. Hypoalbuminemia with an albumin of 2. 6. Sacral wound. 7. Clostridium difficile colitis. 8. Atrial fibrillation. 9. Diabetes type 2. PLAN: 1. No acute indications for dialysis at this time. He is currently receiving fluids at 150 mL an hour. He has diminished urine output. We will go ahead and discontinue IV fluids. We will administer 3 doses of IV albumin. 2. Cautioned Lovenox use in the setting of severe renal insufficiency, fever, heparin if anticoagulation is needed. 3. Check renal ultrasound. 4. Check chest x-ray in the a.m. and check a CK. 5. Would avoid vancomycin and defer antibiotics to Internal Medicine. 6. Discussed with the patient the possibility of dialysis. No acute indications today, but he may need a temporary dialysis by tomorrow. He is okay to proceed if necessary. Informed consent was obtained. Thank you for requesting my opinion in the care and management of this patient. <ELECTRONICALLY SIGNED> By: Matthew Epstein MD 01/28/21 1213 1226 [id number] Epstein MD /nt
--- NOTE | 2021-01-28 14:13 | NUR ---
Case and plan of care reviewed with MD -discussed need for new HD cath, possible transfer for fecal transplant this am. Dr Leal consulted and fecal transplant need confirmed. Will need to transfer to [facility]. Transfer team notifed JOSE [phone] spoken to. Clinicals faxed to [phone].Awaiting confirmation for acceptance.
--- NOTE | 2021-01-28 15:00 | NUR ---
ASSUMED CARE AT 1230. PLACEMENT CONFIRMED FOR TEMP DIALYSIS CATH AND RT IJ. CT ABD DONE. BM x1, LOOSE MUCOID. PARTIAL BED BATH GIVEN. CRRT STARTED AT 1430.
[2021-01-28 15:27] LABS: CREATININE 5.8 mg/dL (0.6-1.3); POTASSIUM 4.7 mmol/L (3.5-5.1); TOTAL BILIRUBIN 0.9 mg/dL (<0.1-1.0); TOTAL PROTEIN 5.9 g/dL (6.4-8.2)
--- NOTE | 2021-01-28 18:46 | NUR ---
TOLERATING CRRT, PLAN TO END TREATMENT AT 2230. DOPAMINE TURNED OFF AT 1700. LEVOPHED AT 30 MCG/MIN. UPDATED DAUGHTER AND MOM IN THE UNIT.
[2021-01-28 18:47] LABS: HEMATOCRIT 36.9 % (42.0-52.0); HEMOGLOBIN 11.2 gm/dL (14.0-18.0); MCH 24.6 pg (26.0-34.0); MCHC 30.4 g/dL (28.0-37.0); MCV 80.9 fL (80.0-100.0); MPV 6.3 fl. (7.2-11.1); RBC 4.57 mil/uL (4.50-6.00); RDW-CV 20.1 % (10.5-14.5)
[2021-01-28 18:54] LABS: WBC 52.9 thou/uL (4.0-11.0)
[2021-01-28 19:00] LABS: CALCIUM 8.4 mg/dL (8.5-10.1); POTASSIUM 4.7 mmol/L (3.5-5.1)
[2021-01-28 19:03] LABS: CREATININE 4.8 mg/dL (0.6-1.3)
[2021-01-28 19:07] LABS: CALCIUM 8.6 mg/dL (8.5-10.1); MAGNESIUM 2.2 mg/dL (1.8-2.4); PHOSPHORUS* 5.6 mg/dL (2.5-4.9)
[2021-01-28 23:06] LABS: HEPATITIS B SURFACE AG Negative (Negative)
[2021-01-29] VITALS (78 sets, daily range): BP systolic 88–122; BP diastolic 38–73
[2021-01-29 00:26] LABS: HEMATOCRIT 35.9 % (42.0-52.0); HEMOGLOBIN 11.1 gm/dL (14.0-18.0); MCV 80.7 fL (80.0-100.0); MPV 6.3 fl. (7.2-11.1); RDW-CV 20.2 % (10.5-14.5)
[2021-01-29 00:37] LABS: CALCIUM 8.4 mg/dL (8.5-10.1); CREATININE 4.7 mg/dL (0.6-1.3); MAGNESIUM 2.1 mg/dL (1.8-2.4); PHOSPHORUS* 5.6 mg/dL (2.5-4.9); POTASSIUM 4.5 mmol/L (3.5-5.1)
--- NOTE | 2021-01-29 12:46 | NUR ---
GI at [facility] called and confirmed Fecal Transplant scheduled for tomorrow 01/30/21 am.
[2021-01-29 16:03] LABS: HEMOGLOBIN 10.8 gm/dL (14.0-18.0); MCH 24.7 pg (26.0-34.0); MCHC 30.7 g/dL (28.0-37.0); MCV 80.3 fL (80.0-100.0); NUCLEATED RBCS 0 /100WBC; PLATELET COUNT* 418 thou/uL (150-400); RBC 4.37 mil/uL (4.50-6.00); RDW-CV 20.8 % (10.5-14.5); WBC 31.4 thou/uL (4.0-11.0)
[2021-01-29 16:15] LABS: CALCIUM 8.4 mg/dL (8.5-10.1); CREATININE 5.3 mg/dL (0.6-1.3); POTASSIUM 4.1 mmol/L (3.5-5.1); TOTAL BILIRUBIN 0.8 mg/dL (<0.1-1.0); TOTAL PROTEIN 5.8 g/dL (6.4-8.2)
[2021-01-29 16:38] LABS: ABSOLUTE EOSINOPHILS 0.3 thou/uL (0.0-0.7); ABSOLUTE LYMPHOCYTES 3.5 thou/uL (0.8-5.3); ABSOLUTE MONOCYTES 2.5 thou/uL (0.0-1.2); ABSOLUTE NEUTROPHILS 25.1 thou/uL (1.6-8.1)
[2021-01-29 16:39] LABS: CLUMPED PLTS OCCASIONAL; PLATELET ESTIMATE ADEQUATE
[2021-01-29 16:40] LABS: MICROCYTES Occasional
[2021-01-29 16:41] LABS: ANISOCYTOSIS 3+; POLYCHROMASIA Occasional
[2021-01-29 16:42] LABS: HYPOCHROMASIA Occasional
--- NOTE | 2021-01-29 18:47 | NUR ---
ALL ASSESSMENTS COMPLETED CHARTED. PT BEING TRANSFERRED TO [facility] THIS EVENING FOR HIS FECAL TRANSPLANT IN THE MORNING. TRANSFER PAPERS COMPLETED; PENDING PICKUP BY [facility].
[2021-01-30 05:35] LABS: WBC 42.5 thou/uL (4.0-11.0)
[2021-01-30 05:36] LABS: RBC 4.45 mil/uL (4.50-6.00)
== END 2021-01-29 19:23 | disposition short-term general hospital (02) | DRG 871 ==
LOC: M.ERS 14:50 → M.2W 16:28 → M.TBA-ER 16:28 → M.2W 18:21 → M.ICU 01-26 11:45
PROVIDERS: Family Medicine; Internal Medicine; Internal Medicine Nephrology; ADMIT Internal Medicine; ATTEND Internal Medicine
PROC: 02HV33Z Insertion of Infusion Device into Superior Vena Cava, Percutaneous Approach (ICD-10-PCS; principal; 2021-01-28)
PROC: B548ZZA Ultrasonography of Superior Vena Cava, Guidance (ICD-10-PCS; principal; 2021-01-28)
DX: A41.9 Sepsis, unspecified organism (principal); N17.0 Acute kidney failure with tubular necrosis; R65.21 Severe sepsis with septic shock; N39.0 Urinary tract infection, site not specified; A04.72 Enterocolitis due to Clostridium difficile, not specified as recurrent; E87.1 Hypo-osmolality and hyponatremia; I82.612 Acute embolism and thrombosis of superficial veins of left upper extremity; Z68.42 Body mass index [BMI] 45.0-49.9, adult; L89.152 Pressure ulcer of sacral region, stage 2; Z20.822 Contact with and (suspected) exposure to COVID-19; K21.9 Gastro-esophageal reflux disease without esophagitis; E11.9 Type 2 diabetes mellitus without complications; M10.9 Gout, unspecified; I48.91 Unspecified atrial fibrillation; I95.9 Hypotension, unspecified; E88.09 Other disorders of plasma-protein metabolism, not elsewhere classified; I50.9 Heart failure, unspecified; F32.9 Major depressive disorder, single episode, unspecified; D64.9 Anemia, unspecified; D47.3 Essential (hemorrhagic) thrombocythemia; E66.01 Morbid (severe) obesity due to excess calories; Z86.718 Personal history of other venous thrombosis and embolism; Z82.49 Family history of ischemic heart disease and other diseases of the circulatory system; Z83.6 Family history of other diseases of the respiratory system; I11.0 Hypertensive heart disease with heart failure